=== PATIENT | female | born 1960 | race Caucasian/White ===

== ENCOUNTER 2020-04-14 08:07 | Day surgery (SDC) | payer BC ==
[~2020-04-14] VITALS: Ht 157.5 cm; Wt 68.5 kg
[~2020-04-14 08:07] MED LIST: IRBESARTAN300 MG PO; PLAQUENIL200 MG PO; VITAMIN D5000 UNI1 PO; WELLBUTRIN XL300 MG PO
[2020-04-14] MEDS ORDERED: IRBESARTAN-HCT1 EAC1 PO (08:29)
[2020-04-14] MEDS ORDERED: METOPROLOL SUC100 MG PO (08:29)
--- NOTE | 2020-04-14 09:37 | NUR ---
04/14/20 0937 Nakia Coleman [age] PT ARRIVED TO PACU ON 3L VIA NC, PT RESTING IN BED AND DENIES NAUSEA AND PAIN. VSS. PLAN OF CARE DISCUSSED.
--- NOTE | 2020-04-24 08:12 | OR ---
[facility] [address], [place] [address] Signed DATE OF OPERATION: 04/14/2020 SURGEON: Truman Peters MD PREOPERATIVE DIAGNOSIS: History of right-sided tubular adenoma, 2017. POSTOPERATIVE DIAGNOSIS: Diverticulosis of sigmoid, no evidence of recurrent or new polyp. PROCEDURE: Total colonoscopy to cecum. ANESTHESIA: Intravenous sedation, fentanyl 100 mcg and Versed 4 mg. INDICATION: This 59-year-old white woman is a patient of Dr. Bradford and known to me from the past having undergone colonoscopy in 2017. She is noted at that time to have a tubular adenoma of the right colon. She is symptom free currently and has no family history of colon cancer. She is here for surveillance colonoscopy, understand the risks of bleeding, infection, and perforation. FINDINGS: The prep was excellent. Complete colonoscopy was undertaken of the cecum without question. She had only scattered diverticula of the sigmoid and left colon. No evidence of polyp or other abnormality. DESCRIPTION OF PROCEDURE: The patient was brought to the endoscopy suite and placed in lateral decubitus position, given intravenous sedation to the point of slurred speech and nystagmus. Digital rectal examination was normal. An Olympus video colonoscope was passed in the rectum and manipulated throughout the colon noting diverticular changes of sigmoid and left colon. Scope was ultimately advanced to the cecum. The ileocecal valve and appendiceal orifice were normal. The scope was withdrawn from that point and careful inspection upon withdrawal of scope showed no sign of polyps or colitis, only diverticular changes of the left colon and sigmoid as described. Retroflexed view of the rectum was normal. Scope was removed. The patient was taken to the recovery room in good condition. Electronically Signed By: TRUMAN PETERS MD 04/24/20 0812 PATIENT NAME: TIEN GARCIA OPERATIVE REPORT DATE OF : 56 REPORT #: [id number] PHYSICIAN: TRUMAN PETERS MD PCP: PHAN BRADFORD MD REPORT IS CONFIDENTIAL AND NOT TO BE RELEASED WITHOUT AUTHORIZATION [facility] [address], [place] [address] Signed CONCLUDING DIAGNOSIS: Diverticulosis. No evidence of recurrent polyps. PLAN: Recommend a repeat colonoscopy in 7-10 years sooner if clinically indicated by symptoms or other typical indicators for colonoscopy. She will return to the ongoing care of Dr. Bradford. MD SELENA Varela/MODL /[id number] cc: Phan Bradford MD Copies: PHAN BRADFORD MD ~ Electronically Signed By: TRUMAN PETERS MD 04/24/20 0812 PATIENT NAME: TIEN GARCIA OPERATIVE REPORT DATE OF : 56 REPORT #: [id number] PHYSICIAN: TRUMAN PETERS MD PCP: PHAN BRADFORD MD REPORT IS CONFIDENTIAL AND NOT TO BE RELEASED WITHOUT AUTHORIZATION
== END 2020-04-14 10:07 | disposition home or self-care (01) ==
LOC: OPS 08:07 → DS 08:07 → OPS 08:30
PROVIDERS: ATTEND Surgery
PROC: 0DJD8ZZ Inspection of Lower Intestinal Tract, Via Natural or Artificial Opening Endoscopic (ICD-10-PCS; principal; 2020-04-14 08:30)
DX: Z12.11 Encounter for screening for malignant neoplasm of colon (principal); K57.30 Diverticulosis of large intestine without perforation or abscess without bleeding; I10 Essential (primary) hypertension; Z79.899 Other long term (current) drug therapy; Z86.010 Personal history of colon polyps; Z83.71 Family history of colonic polyps
CPT/HCPCS: 99153; G0500; J2250; J3010; J7121

== ENCOUNTER 2021-02-13 12:47 | Emergency (ER) | payer BC ==
[~2021-02-13] VITALS: Ht 157.5 cm; Wt 69.0 kg
[~2021-02-13 12:47] MED LIST changes: +IRBESARTAN-HCT1 EAC1 PO; +METOPROLOL SUC100 MG PO
[2021-02-13] MEDS ORDERED: ASPIRIN325 MG PO (13:15)
--- NOTE | 2021-02-13 22:13 | EKG ---
[facility] [address] [facility] [place], [place] [address] Signed Normal sinus rhythm Incomplete right bundle branch block ST \T\ T wave abnormality, consider anterior ischemia Abnormal ECG No previous ECGs available Confirmed by TIEN NASH MD ([id number]) on 02/13/2021 10:09:20 PM Electronically Signed By: TIEN NASH MD 02/13/21 2213 PATIENT NAME: TIEN GARCIA Electrocardiogram DATE OF : 56 PHYSICIAN: TIEN NASH MD REPORT #: [id number] REPORT IS CONFIDENTIAL AND NOT TO BE RELEASED WITHOUT AUTHORIZATION
--- NOTE | 2021-02-13 22:13 | EKG ---
[facility] [address] [facility] [place] [address] Signed Normal sinus rhythm Incomplete right bundle branch block T wave abnormality, consider anterior ischemia Abnormal ECG When compared with ECG of 13-FEB-2021 13:01, (Unconfirmed) No significant change was found Confirmed by TIEN NASH MD ([id number]) on 02/13/2021 10:10:34 PM Electronically Signed By: TIEN NASH MD 02/13/21 2213 PATIENT NAME: TIEN GARCIA Electrocardiogram DATE OF : 56 PHYSICIAN: TIEN NASH MD REPORT #: [id number] REPORT IS CONFIDENTIAL AND NOT TO BE RELEASED WITHOUT AUTHORIZATION
== END 2021-02-13 19:05 | disposition home or self-care (01) ==
LOC: ED 12:47
DX: R07.89 Other chest pain (principal); I10 Essential (primary) hypertension; Z79.899 Other long term (current) drug therapy; Z79.82 Long term (current) use of aspirin; Z20.822 Contact with and (suspected) exposure to COVID-19
CPT/HCPCS: 71045; 80053; 83735; 84484; 85025; 93005; 93010; 96374; 99285-25; C9803; J2405; U0003